=== PATIENT | male | born 1940 | race Caucasian/White ===

== ENCOUNTER 2017-05-23 08:44 | Day surgery (SDC) | payer OTHER ==
[~2017-05-23] VITALS: Ht 172.7 cm; Wt 108.2 kg
[2017-05-23 09:03] VITALS: BP 156/87; PULSE 58; RESP 20; TEMP 97.6; O2SAT 97
[2017-05-23] MEDS ORDERED: MECL-62 PO ×2 (09:37)
[2017-05-23] MEDS ORDERED: PLAV75TA29 PO ×2 (09:37)
[2017-05-23] MEDS ORDERED: SIMV40TA PO ×2 (09:37)
[2017-05-23] MEDS ORDERED: FISHCAP4 PO ×2 (09:37)
[2017-05-23] MEDS ORDERED: FERR325T8 PO ×2 (09:37)
[2017-05-23] MEDS ORDERED: RAMI10CA PO ×2 (09:37)
[2017-05-23] MEDS ORDERED: PANT40TA3 PO ×2 (09:37)
[2017-05-23] MEDS ORDERED: SODIUM CHLOR 0.9% 1000 ML IV SCH ×2 (10:00)
[2017-05-23 10:20] LABS: AUTOMATED NEUTROPHIL # 4.7 TH/MM3 (1.8-7.7); BASOPHIL # 0.1 TH/MM3 (0-0.2); BASOPHIL % 0.8 % (0.0-2.0); EOSINOPHIL # 0.3 TH/MM3 (0-0.4); EOSINOPHIL % 3.8 % (0.0-4.0); HEMATOCRIT 40.2 % (39.0-51.0); LYMPH % 16.8 % (9.0-44.0); LYMPHOCYTE # 1.2 TH/MM3 (1.0-4.8); MEAN CORPUSCULAR HEMOGLOBIN 25.9 PG (27.0-34.0); MEAN CORPUSCULAR HGB CONC 32.4 % (32.0-36.0); MEAN PLATELET VOLUME 8.6 FL (7.0-11.0); MONO % 9.7 % (0.0-8.0); MONOCYTE # 0.7 TH/MM3 (0-0.9); NEUT % 68.9 % (16.0-70.0); PLATELET COUNT 236 TH/MM3 (150-450); RED BLOOD COUNT 5.02 MIL/MM3 (4.50-5.90); RED CELL DISTRIBUTION WIDTH 17.6 % (11.6-17.2); WHITE BLOOD COUNT 6.9 TH/MM3 (4.0-11.0)
[2017-05-23 10:25] LABS: PROTHROMBIN TIME - PATIENT 10.7 SEC (9.8-11.6)
[2017-05-23] MEDS ORDERED: LIDOCAINE HCL 1% 20 ML VIAL ONE ×2 (11:42)
[2017-05-23] MEDS ORDERED: MIDAZOLAM HCL 2 MG/2 ML VIAL ONE ×2 (11:44)
--- NOTE | 2017-05-23 12:14 | PD.RAD ---
Post CT Procedure Prog Note Pre Procedure Diagnosis: (1) Anemia Post Procedure Diagnosis: (1) Anemia Procedure Date: May 23, 2017 Supervising Radiologist: Jose Angel Dawn Anesthesia: Conscious Sedation Plan of Activity Patient to Unit: [facility] Patient Condition: Good See PACS Report for procedural detail/treatment Jose Angel Dawn MD May 23, 2017 12:14
[2017-05-23 12:25] VITALS: BP 130/65; PULSE 55; RESP 16; TEMP 97.6; O2SAT 98
[2017-05-23 12:45] VITALS: BP 150/73; PULSE 59; RESP 16; O2SAT 98
[2017-05-23 12:55] VITALS: BP 153/77; PULSE 62; RESP 16; O2SAT 98
--- NOTE | 2017-05-23 13:01 | RADRPT ---
EXAM DATE/TIME: 05/23/2017 11:57 [place] COMPARISON: No previous studies available for comparison. INDICATIONS : Lymphoma SEDATION TIME: 15 minutes BIOPSY SITE: Left ilium MEDICATION(S): 1.) 2 mg midazolam (Versed) IV 2.) 100 mcg fentanyl (Sublimaze) IV DEVICE(S): 1.) 11 gauge On-Control needle MEDICAL HISTORY : Hypertension. SURGICAL HISTORY : None. ENCOUNTER: Initial ACUITY: 1 day PAIN SCORE: 0/10 LOCATION: Left ilium A total of one core specimen(s) were obtained and sent to the laboratory for pathologic evaluation. PROCEDURE: 1. CT guided bone marrow biopsy. 2. Conscious sedation with continuous EKG and oximetry monitoring. 3. EKG and oximetry remained stable throughout the procedure. Prior to the procedure informed consent was obtained. Any appropriate prior imaging studies were rev iewed. Using automated exposure control and adjustment of the mA and/or kV according to patient size , radiation dose was kept as low as reasonably achievable to obtain optimal diagnostic quality images . DICOM format image data is available electronically for review and comparison. The site was prepped in a sterile fashion. Full sterile technique was used, including cap, mask, lexx rile gloves and gown and a large sterile sheet. Hand hygiene and 2% chlorhexidine and/or betadine/al cohol prep was utilized per protocol for cutaneous antisepsis. The skin and subcutaneous tissues wer e infiltrated with local anesthetic solution. With CT guidance the previously identified target was localized. Biopsy was performed using the presc ribed needle as above. Following biopsy marrow aspiration was performed with repeat puncture. Adequa te hemostasis was obtained with compression at the puncture site. Follow-up CT scan reveals no hemorrhage. Conscious sedation was performed with the prescribed dosages and duration as above in the presence of an independent trained radiology nurse to assist in the monitoring of the patient. EKG and oximetry remained stable throughout the procedure. The patient tolerated the procedure well and there were no complications. The patient was sent to Radiology Outpatient Unit in stable condition. CONCLUSION: 1. Uncomplicated CT guided bone marrow aspirate. 2. Uncomplicated CT guided bone marrow biopsy. Jose Angel Dawn MD on May 23, 2017 at 12:59 Board Certified Radiologist. This report was verified electronically.
[2017-05-23 13:30] VITALS: BP 135/71; PULSE 61; RESP 16; O2SAT 98
[2017-05-23 14:00] VITALS: BP 137/73; PULSE 59; RESP 16; O2SAT 98
== END 2017-05-23 14:20 | disposition home or self-care (01) ==
LOC: RONC 08:44 → HRIP 08:52 → HROP 14:20
PROVIDERS: ATTEND Internal Medicine Hematology & Oncology
DX: D64.9 Anemia, unspecified (principal); C85.90 Non-Hodgkin lymphoma, unspecified, unspecified site; I10 Essential (primary) hypertension; I73.9 Peripheral vascular disease, unspecified; E78.00 Pure hypercholesterolemia, unspecified; M19.90 Unspecified osteoarthritis, unspecified site
CPT/HCPCS: 38221; 77012; 85025; 85097; 85610; 85730; 88184; 88185; 88237; 88264; 88280; 88305; 88311; 88313; 88341; 88342; 99152; G0364; J2250; J3010; J7030